=== PATIENT | male | born 1980 | race Caucasian/White ===

== ENCOUNTER 2025-08-24 16:48 | Emergency (ER) | payer BC ==
[~2025-08-24] VITALS: Ht 180.3 cm; Wt 98.4 kg
[~2025-08-24 16:48] MED LIST: PREDNICOT20 MG PO; TESSALON PERLE100 M1 PO; ZYRTEC10 MG PO
[2025-08-24] MEDS ORDERED: FLUOXETINE HCL20 M2 PO (17:21)
[2025-08-24] MEDS ORDERED: TESTOSTERONE75 G2 TD (17:21)
[2025-08-24] MEDS ORDERED: Tdap Vaccine 0.5 ML SYR (Adult Vaccine) IM ONE (17:25)
[2025-08-24] MEDS ORDERED: Lidocaine Hydrochloride 100 MG/5 ML SYR IV ONE (17:38)
[2025-08-24] MEDS ORDERED: CEPHALEXIN500 M1 PO (20:25)
== END 2025-08-24 20:36 | disposition home or self-care (01) ==
LOC: ED 16:48
DX: S51.812A Laceration without foreign body of left forearm, initial encounter (principal); W45.8XXA Other foreign body or object entering through skin, initial encounter; Y93.89 Activity, other specified; Y92.89 Other specified places as the place of occurrence of the external cause; Y99.8 Other external cause status